=== PATIENT | male | born 1960 | race Caucasian/White ===

== ENCOUNTER 2016-02-16 07:17 | Day surgery (SDC) | payer OTHER ==
[2016-02-10 14:49] VITALS: BMI 23.8
[~2016-02-16 07:17] MED LIST: HEPARIN SODIUM,PORCINE 5,000 UNIT/ML 1 ML VIAL SQ ONE; HYDROmorphone 1 MG/ML 1 ML SYRINGE IVP PRN; LACTATED RINGERS 1,000 ML IV SCH; LIDOCAINE 1% 20 ML VIAL (10MG/ML) FOR IV START INTRADERMA PRN; MIDAZOLAM 2 MG/2 ML VIAL IV PRN; ONDANSETRON 4 MG/2 ML VIAL IVP PRN; Pre Op ABX Message 1 EACH MISC MISCELLANE ONE
[2016-02-16 09:00] VITALS: RESP 16; TEMP 97.7
--- NOTE | 2016-02-16 09:12 | P.GSHP ---
History of Present Illness H&P Date: 02/16/16 Chief Complaint: Back mass Patient here today for excision upper right back lesion. This was previously inflamed and required an incision and drainage. We suspect a sebaceous cyst. Mild discomfort persists. The lump has recurred. No fevers or chills. Past Medical History Past Medical History: No Reported History Additional Past Medical History / Comment(s): BACK PAIN, STATES CYST ON HIS BACK. 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 SMOKING SINCE APPROX 20 YRS OLD, QUIT 10 YEARS. SMOKING FOR 25 YRS OR MORE. Past Drug Use History: None Reported - Past Family History Mother Family Medical History: No Reported History Medications and Allergies Home Medications Medication Instructions Recorded Confirmed Type No Known Home Medications [No 02/10/16 02/10/16 History Known Home Medications] Allergies Allergy/AdvReac Type Severity Reaction Status Date / Time No Known Allergies Allergy Verified 02/16/16 08:34 Surgical - Exam Vital Signs Temp Pulse Resp BP Pulse Ox 97.7 F 66 16 122/67 98 02/16/16 08:40 02/16/16 08:40 02/16/16 08:40 02/16/16 08:40 02/16/16 08:40 Physical exam: General: Well-developed, well-nourished HEENT: Normocephalic, sclerae nonicteric Abdomen: Nontender, nondistended, right upper back with a 2.5-3 cm subcutaneous tender nodule suspect sebaceous cyst Extremities: No edema Neuro: Alert and oriented Assessment and Plan (1) Sebaceous cyst Narrative/Plan: We'll proceed with surgical excision. Risks of bleeding and recurrence and infection were discussed. He understands and wishes to proceed. Status: Acute
[2016-02-16] MEDS ORDERED: BUPIVACAIN-EPI 0.25%-1:200,000 30 ML VIAL SQ ONE ×2 (09:27→09:50)
[2016-02-16] MEDS ORDERED: MIDAZOLAM 2 MG/2 ML VIAL ONE (09:28)
[2016-02-16] MEDS ORDERED: KETAMINE 10 MG/ML 20 ML VIAL ONE (09:28)
[2016-02-16] MEDS ORDERED: PROPOFOL 10 MG/ML 20 ML VIAL IV ONE (09:28)
[2016-02-16] MEDS ORDERED: LIDOCAINE 1% INJ 10MG/ML (20 ML MDV) ONE (09:28)
[2016-02-16] MEDS ORDERED: fentaNYL (PF) 50 MCG/ML 2 ML AMP ONE (09:28)
[2016-02-16] MEDS ORDERED: SODIUM CHLORIDE 0.9% 50 ML with ceFAZolin 2,000 MG IV ONE ×2 (09:41)
--- NOTE | 2016-02-16 10:26 | P.OP ---
Date of Procedure: 02/16/16 Procedure(s) Performed: PREOPERATIVE DIAGNOSIS: Back mass POSTOPERATIVE DIAGNOSIS: Same PROCEDURE: Excision SURGEON: Rochelle EBL: Minimal ANESTHESIA: Magdy COMPLICATIONS: None OPERATIVE PROCEDURE: Patient was placed in the operative table in the left decubitus position. The patient's upper back area was prepped and draped in usual sterile fashion. The patient had a palpable mass beneath the skin surface in the upper back. There were 2 separate scars overlying the palpable mass from a previous I&D according to the patient. An elliptical incision was made including the previous scars. Dissection through the subcutaneous tissues took place using electrocautery and sharp dissection. The mass actually appeared to represent a lipoma. This was fully excised. This measured 4.5 x 3 cm in size. The subcutaneous tissues were closed using 3-0 Vicryl sutures and the skin using a running 4-0 subcuticular Monocryl suture. Steri-Strips and sterile dressings were applied. DISPOSITION: Stable to recovery room
[2016-02-16 10:53] VITALS: BP 100/58; PULSE 61
== END 2016-02-16 11:25 | disposition home or self-care (01) ==
LOC: OR 07:17
PROVIDERS: ATTEND Surgery
DX: D17.1 Benign lipomatous neoplasm of skin and subcutaneous tissue of trunk (principal); F17.200 Nicotine dependence, unspecified, uncomplicated
CPT/HCPCS: 11406; 88304; J2250; J2405; J2001; J3010; J2704; 99152; 99153

== ENCOUNTER 2016-06-12 09:42 | Emergency (ER) | payer OTHER ==
[2016-06-12] MEDS ORDERED: SODIUM CHLORIDE 0.9% 1,000 ML IV STA (10:02)
[2016-06-12] MEDS ORDERED: ONDANSETRON 4 MG/2 ML VIAL IVP STA (10:02)
[2016-06-12] MEDS ORDERED: ONDANSETRON ODT 4 MG TAB PO STA (10:10)
[2016-06-12] MEDS ORDERED: cloNIDine 0.3 MG/24HR PATCH 1 PATCH PATCH TRANSDERM STA (10:37)
[2016-06-12] MEDS ORDERED: DIAZEPAM 5 MG TAB PO STA (10:37)
--- NOTE | 2016-06-12 10:41 | ED ---
General Adult HPI - General Chief complaint: Nausea/Vomiting/Diarrhea Stated complaint: sick Time Seen by Provider: 06/12/16 10:26 Source: patient, RN notes reviewed, old records reviewed Mode of arrival: ambulatory Limitations: no limitations - History of Present Illness Initial comments: This is a 56-year-old male to the ER for evaluation of not feeling well. Patient states he has history of some drug abuse, history of heroin use. Is been 2 days since he last used. He feels edgy and feels like his nerves are up. Does not feel well. Not homicidal or suicidal. 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 He does not want to lose his job. Patient states he was using heroin about 2 days ago for about 7 days straight 52 does not quit. Again is not homicidal or suicidal - Related Data Previous Rx's Medication Instructions Recorded Hydrocodone/Acetaminophen [[place] 1 - 2 each PO Q4HR PRN #20 tab 02/16/16 5-325] Diazepam [Valium] 5 mg PO BID #20 tab 06/12/16 Ondansetron [Zofran] 4 mg PO Q8HR PRN #30 tab 06/12/16 Allergies Allergy/AdvReac Type Severity Reaction Status Date / Time No Known Allergies Allergy Verified 02/16/16 08:34 Review of Systems ROS Statement: Those systems with pertinent positive or pertinent negative responses have been documented in the HPI. ROS Other: All systems not noted in ROS Statement are negative. Past Medical History Past Medical History: No Reported History Additional Past Medical History / Comment(s): BACK PAIN, STATES CYST ON HIS BACK. 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 SMOKING SINCE APPROX 20 YRS OLD, QUIT 10 YEARS. SMOKING FOR 25 YRS OR MORE. Past Drug Use History: None Reported - Past Family History Mother Family Medical History: No Reported History General Exam Limitations: no limitations General appearance: alert, in no apparent distress, anxious Head exam: Present: atraumatic, normocephalic, normal inspection Eye exam: Present: normal appearance, PERRL, EOMI. Absent: scleral icterus, conjunctival injection, periorbital swelling ENT exam: Present: normal exam, mucous membranes moist Neck exam: Present: normal inspection. Absent: tenderness, meningismus, lymphadenopathy Respiratory exam: Present: normal lung sounds bilaterally. Absent: respiratory distress, wheezes, rales, rhonchi, stridor Cardiovascular Exam: Present: regular rate, normal rhythm, normal heart sounds. Absent: systolic murmur, diastolic murmur, rubs, gallop, clicks GI/Abdominal exam: Present: soft, normal bowel sounds. Absent: distended, tenderness, guarding, rebound, rigid Extremities exam: Present: normal inspection, full ROM, normal capillary refill. Absent: tenderness, pedal edema, joint swelling, calf tenderness Back exam: Present: normal inspection Neurological exam: Present: alert, oriented X3, CN II-XII intact Psychiatric exam: Present: normal affect, normal mood Skin exam: Present: warm, dry, intact, normal color. Absent: rash Course Vital Signs 06/12/16 09:43 Temperature 97 F L Pulse Rate 78 Respiratory 20 Rate Blood Pressure 130/80 O2 Sat by Pulse 99 Oximetry - Reevaluation(s) Reevaluation #1: 06/12/16 10:40 Patient feels mildly improved at this time Medical Decision Making - Medical Decision Making 56-year-old symptoms of mild opiate withdrawal, patient medications to help transition, patient in no acute distress at this time alert and oriented will be discharged home Disposition Clinical Impression: Opioid withdrawal Disposition: HOME SELF-CARE Condition: Good Instructions: Narcotic Pain Management (ED), Opioid Withdrawal (ED) Prescriptions: Diazepam [Valium] 5 mg PO BID #20 tab Ondansetron [Zofran] 4 mg PO Q8HR PRN #30 tab PRN Reason: Nausea Referrals: None,Stated [Primary Care Provider] - 1-2 days
[2016-06-12 11:04] VITALS: BP 147/75; PULSE 67; RESP 18; TEMP 97.5
== END 2016-06-12 11:04 | disposition home or self-care (01) ==
LOC: EC 09:42
DX: F11.23 Opioid dependence with withdrawal (principal); F17.200 Nicotine dependence, unspecified, uncomplicated; Z53.20 Procedure and treatment not carried out because of patient's decision for unspecified reasons
CPT/HCPCS: 99283

== ENCOUNTER → 2016-08-11 | Outpatient (CLI) | payer OTHER ==
--- NOTE | 2016-08-11 15:16 | CT ---
EXAMINATION TYPE: CT thoracic spine wo con DATE OF EXAM: 08/11/2016 COMPARISON: NONE HISTORY: Thoracic spine pain CT DLP: 1464 mGycm Automated exposure control for dose reduction was used. FINDINGS: There is a large calcified lymph node at the aortopulmonic window measuring 3.1 x 2.1 cm in size. Sub carinal adenopathy which has calcifications No spinal canal stenosis or neural foraminal stenosis through the thoracic spine is evident. Couple S chmorl's node may be present in the region of the superior endplate of L1. Vertebral body heights are preserved. Disc heights are preserved. IMPRESSION: NO ACUTE OSSEOUS ABNORMALITY THORACIC SPINE.
== END | disposition home or self-care (01) ==
LOC: RADCTMAIN 13:12
PROVIDERS: ATTEND Family Medicine
DX: M54.6 Pain in thoracic spine (principal)
CPT/HCPCS: 72128

== ENCOUNTER 2017-04-24 19:28 | Emergency (ER) | payer OTHER ==
[2017-04-24 20:08] VITALS: TEMP 98
--- NOTE | 2017-04-24 20:47 | ED ---
Male Urogenital HPI - General Source: patient, RN notes reviewed Mode of arrival: wheelchair Limitations: physical limitation <Lynnette Lieberman - Last Filed: 04/24/17 21:27> <Hiwot Bourgeois - Last Filed: 04/24/17 22:57> - General Chief complaint: Urogenital Stated complaint: back injury-[facility] Time Seen by Provider: 04/24/17 20:34 - History of Present Illness Initial comments: This is a 56-year-old male who presents to the emergency department with chief complaint of difficulty urinating. Patient states that last Sunday he strained a muscle in his low back. He states that he was in a lot of pain for the first 2 days but then symptoms subsided. Patient states that last he developed difficulty urinating. He states that he feels that he is not emptying his bladder. He states that when he does urinate there is only a small amount. He states that when he tries to urinate he has to strain and he ends up shaking. He denies any bladder or bowel incontinence. Denies saddle paresthesias or numbness and tingling. He states he is not concerned about the back pain as he deals with chronic back pain. He is concerned that he is not urinating. Denies dysuria or hematuria. Denies fevers or chills, shortness breath or chest pain, abdominal pain, nausea or vomiting. (Lynnette Lieberman) - Related Data Previous Rx's Medication Instructions Recorded Ciprofloxacin HCl [Cipro] 500 mg PO Q12HR #14 tablet 04/24/17 oxyCODONE HCL/ACETAMINOPHEN 1 tab PO Q8HR PRN #12 tab 04/24/17 [Percocet 7.5-325 mg] Allergies Allergy/AdvReac Type Severity Reaction Status Date / Time No Known Allergies Allergy Verified 04/24/17 20:13 Review of Systems ROS Other: All systems not noted in ROS Statement are negative. <Lynnette Lieberman - Last Filed: 04/24/17 21:27> ROS Other: All systems not noted in ROS Statement are negative. <Hiwot Bourgeois - Last Filed: 04/24/17 22:57> ROS Statement: Those systems with pertinent positive or pertinent negative responses have been documented in the HPI. Past Medical History Past Medical History: No Reported History Additional Past Medical History / Comment(s): BACK PAIN, STATES CYST ON HIS BACK. 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 Past Anesthesia/Blood Transfusion Reactions: No Reported Reaction Past Psychological History: No Psychological Hx Reported Smoking Status: Current every day smoker Past Alcohol Use History: Rare Past Drug Use History: None Reported - Past Family History Mother Family Medical History: No Reported History <Lynnette Lieberman - Last Filed: 04/24/17 21:27> General Exam Limitations: physical limitation <Lynnette Lieberman - Last Filed: 04/24/17 21:27> <Hiwot Bourgeois - Last Filed: 04/24/17 22:57> - General Exam Comments Initial Comments: General: Awake and alert, well-developed; in no apparent distress. Patient is wearing a back brace. HEENT: Head atraumatic, normocephalic. Pupils are equal, round and reactive to light. Extraocular movements intact. Oropharynx moist without erythema or exudate. Neck: Supple. Normal ROM. No tenderness. Cardiovascular: Regular rate and rhythm. No murmurs, rubs or gallops. Chest symmetrical. Respiratory: Lungs clear to auscultation bilaterally. No wheezes, rales or rhonchi. Normal respiratory effort with no use of accessory muscles. Abdomen: Soft, non-tender, non-distended. No rigidity, rebound or guarding. Normal bowel sounds in all 4 quadrants. Musculoskeletal: Normal ROM, no tenderness bilateral upper and lower extremities. Skin: [place], warm and dry without rashes or lesions. Neurological: Alert and oriented x3. CN II-XII grossly intact. Speech is fluent and answers are appropriate. No focal neuro deficits. (Luisana,Lynnette Rojas) Course <Lynnette Lieberman - Last Filed: 04/24/17 21:27> <Hiwot Bourgeois - Last Filed: 04/24/17 22:57> Vital Signs 04/24/17 04/24/17 20:03 21:36 Temperature 98.0 F Pulse Rate 122 H 110 H Respiratory 18 19 Rate Blood Pressure 133/76 137/86 O2 Sat by Pulse 96 97 Oximetry Centers reassessed at 10:30, urinalysis is positive, PSA report is reviewed, Webb is draining well patient be referred to Dr. Hunt for his urinary retention and he be gone on and Cipro 500 mg twice daily for next 7 days and now a few pain meds for his lower back he is following up with his primary care. 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 Bladder scan was performed showing a urine volume of 352. A PSA was obtained. Webb catheter was placed and a urinalysis was sent. At this time, case will be signed over to attending physician, Dr. Bourgeois. (Lynnette Lieberman) - Lab Data Lab Results 04/24/17 04/24/17 Range/Units 21:04 21:15 PSA Screen 1.46 (0.00-4.00) ng/mL Urine Color Yellow Urine Appearance Turbid (Clear) Urine pH 6.5 (5.0-8.0) Ur Specific [place] 1.022 (1.001-1.035) Urine Protein 1+ H (Negative) Urine Glucose (UA) 3+ H (Negative) Urine Ketones Negative (Negative) Urine Blood Negative (Negative) Urine Nitrite Negative (Negative) Urine Bilirubin Negative (Negative) Urine Urobilinogen 3.0 (<2.0) mg/dL Ur Leukocyte Esterase Moderate H (Negative) Urine WBC 27 H (0-5) /hpf Ur Squamous Epith Cells 1 (0-4) /hpf Urine Bacteria Many H (None) /hpf Disposition <Lynnette Lieberman - Last Filed: 04/24/17 21:27> <Hiwot Bourgeois - Last Filed: 04/24/17 22:57> Clinical Impression: Urinary retention, Cystitis Disposition: HOME SELF-CARE Condition: Good Instructions: Urinary Tract Infection in Men (ED) Prescriptions: Ciprofloxacin HCl [Cipro] 500 mg PO Q12HR #14 tablet oxyCODONE HCL/ACETAMINOPHEN [Percocet 7.5-325 mg] 1 tab PO Q8HR PRN #12 tab PRN Reason: Pain Referrals: Eloisa Kent MD [Primary Care Provider] - 1-2 days Abdon Marte MD [STAFF PHYSICIAN] - 1-2 days
[2017-04-24 21:59] LABS: Appearance,Urine Turbid (Clear); Bacteria,Urine Many /hpf; Bilirubin,Urine Negative (Negative); Blood,Urine Negative (Negative); Color,Urine Yellow; Glucose,Urine (UA) 3+ (Negative); Ketones,Urine Negative (Negative); Leukocyte Esterase,Urine Moderate (Negative); Nitrite,Urine Negative (Negative); PH, Urine 6.5 (5.0-8.0); Protein,Urine 1+ (Negative); Specific Gravity,Urine 1.022 (1.001-1.035); Squamous Epithelial Cell,Urine 1 /hpf (0-4); WBC,Urine 27 /hpf (0-5)
[2017-04-24] MEDS ORDERED: oxyCODONE-APAP 7.5-325MG 1 EACH TAB PO STA (22:45)
[2017-04-24] MEDS ORDERED: cefTRIAXone IN SWFI 1,000 MG/10 ML SYRINGE IVP STA (22:45)
[2017-04-24 22:54] VITALS: BP 131/61; PULSE 105; RESP 17
[2017-04-24] MEDS ORDERED: cefTRIAXone 1,000 MG VIAL (IM USE) IM STA (23:07)
[2017-04-25 15:11] LABS: C. trachomatis,PCR Negative (Neg,Equiv); Chlamydia trachomatis Source Urine; N. gonorrhoeae,PCR Negative (Neg,Equiv); Neisseria Source Urine
== END 2017-04-24 23:22 | disposition home or self-care (01) ==
LOC: EC 19:28
DX: N30.90 Cystitis, unspecified without hematuria (principal); R33.9 Retention of urine, unspecified; F17.200 Nicotine dependence, unspecified, uncomplicated; Z53.8 Procedure and treatment not carried out for other reasons
CPT/HCPCS: 51798; 36415; 81001; 87491; 87591; 87086; 99284; 51702; 96372; G0103; J0696

== ENCOUNTER → 2017-08-14 | Outpatient (CLI) | payer OTHER ==
--- NOTE | 2017-08-15 13:46 | CT ---
EXAMINATION TYPE: CT hip RT wo con DATE OF EXAM: 08/14/2017 HISTORY: right hip pain, no specified injury CT DLP: 220 mGycm Automated exposure control for dose reduction was used. Helical imaging through the right hip, mederos l and sagittal reconstructions. No comparisons. FINDINGS: There is no fracture or dislocation. Bone mineralization is maintained. There is minimal marginal spu rring present. Some joint space loss is suspected. 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 No evid ent joint effusion. IMPRESSION: MILD OSTEOARTHRITIS. ADDITIONAL FINDINGS ABOVE.
== END | disposition home or self-care (01) ==
LOC: RADCTMAIN 17:54
PROVIDERS: ATTEND Family Medicine
DX: M16.11 Unilateral primary osteoarthritis, right hip (principal); M76.9 Unspecified enthesopathy, lower limb, excluding foot